=== PATIENT | male | born 1995 | race Caucasian/White ===

== ENCOUNTER → 2019-11-22 | Outpatient (CLI) | payer BC, MEDICARE ==
--- NOTE | 2019-11-22 12:44 | Diagnostic Imaging Report ---
Clinical indication: Patient had an infected tooth x1 week ago. Patient now has fever, cold sweats hard lump in throat. Lump marked with BB. EXAM: Axial CT scan of the brain performed without IV contrast. Axial CT scan of the neck without contrast. Coronal and sagittal reformatted images are created. Auto Exposure Controls were utilized during the CT exam to meet ALARA standards for radiation dose reduction. COMPARISON: None FINDINGS: Head CT: There is no evidence of acute cerebral infarct, intracranial hemorrhage, or gross mass effect. The brain parenchymal volume appears appropriate for patient's age. There is normal toney-white matter distinction. There is no significant midline shift or herniation. There is no evidence of hydrocephalus. The basal cisterns are unremarkable. The skull, extracranial soft tissue, and orbits are unremarkable. The paranasal sinuses are unremarkable. Temporal bones show no significant abnormality. CT NECK: There is bilateral neck lymphadenopathy. Largest measurable lymph node measures 3.3 cm x 3.0 cm x 4.1 cm (AP x Trans x CC). This is seen beneath the left BB marker. There is enlargement of the posterior nasopharyngeal adenoid soft tissue and prominence of the bilateral palatine tonsils. The larynx and hypopharyngeal structures are unremarkable. There is mild to moderate narrowing of the upper airway. Thyroid gland shows no significant abnormality. Bilateral salivary glands show no significant abnormality. Visualized portions lower cavity, tongue, sublingual space and submandibular regions show no significant abnormality. The upper lung coulter are clear. Cervical spine shows no significant abnormality. There is poor dentition with dental cavities involving the mandibular 1st molar teeth bilaterally. There is no significant soft tissue swelling adjacent to the teeth. IMPRESSION: 1: There is diffuse cervical lymphadenopathy with the left side worse than right. Largest lymph node measures roughly 4.1 cm in greatest dimension. There is enlargement of the posterior nasopharyngeal adenoid soft tissue and bilateral pontine tonsils. These findings may be related to infectious or inflammatory process. Mononucleosis should be considered. Given the size of the left neck lymph nodes, lymphoproliferative disorder suggest lymphoma should also should be excluded. 2: There is poor dentition with dental cavities involving the mandibular 1st molar teeth bilaterally. 3: The remainder of the neck CT exam shows no other significant abnormality. 4: Unremarkable CT scan of the brain. Results of this report discussed with Estella Guy APRN via the telephone on 11/22/2019 at 1235Hours. Dictated by: Dictated on workstation # [id number]
== END ==
LOC: RAD 11:37
PROVIDERS: ATTEND Nurse Practitioner Family
DX: K04.7 Periapical abscess without sinus (principal); K02.9 Dental caries, unspecified; L02.11 Cutaneous abscess of neck; R50.9 Fever, unspecified; R59.0 Localized enlarged lymph nodes
CPT/HCPCS: 70450; 70490